=== PATIENT | male | born 1955 | race Caucasian/White ===

== ENCOUNTER 2024-03-11 23:42 | Inpatient (IN) | payer MEDICARE, MEDICAID ==
[~2024-03-11] VITALS: Ht 170.2 cm; Wt 102.1 kg
[2024-03-12] VITALS (20 sets, daily range): BP systolic 117–150; BP diastolic 74–84; PULSE 78–118; RESP 12–21; TEMP 96.8–98.6; O2SAT 90–99
[2024-03-12 00:24] LABS: BASOPHILS % (AUTO) 0.3 % (0-1); EOSINOPHILS % (AUTO) 0.1 % (0-6); HEMATOCRIT 30.4 % (42.0-52.0); HEMOGLOBIN 10.8 g/dl (14.0-17.9); LYMPHOCYTES # (AUTO) 0.4 X10'3 (1.1-4.8); MEAN CORPUSCULAR HEMOGLOBIN 35.9 PG (27.0-31.0); MEAN CORPUSCULAR HGB CONC 35.5 g/dL (33.0-36.5); MEAN CORPUSCULAR VOLUME 101.2 FL (78-98); MEAN PLATELET VOLUME 7.6 FL (7.4-10.4); MONOCYTES # (AUTO) 0.5 X10'3 (0-0.9); NEUTROPHILS # (AUTO) 5.9 X10'3 (1.8-7.7); NEUTROPHILS % (AUTO) 86.6 % (42-75); PLATELET COUNT 147 X10'3 (140-440); RED BLOOD COUNT 3.01 X10'6 (4.70-6.10); RED CELL DISTRIBUTION WIDTH 15.4 % (11.5-14.5); WHITE BLOOD COUNT 6.8 X10'3 (4.5-11.0)
[2024-03-12 01:04] LABS: ALANINE AMINOTRANSFERASE 73 U/L (12-78); ALBUMIN 2.8 G/DL (3.4-5.0); ALBUMIN/GLOBULIN RATIO 0.7 (1.1-1.5); ALKALINE PHOSPHATASE 117 IU/L (46-116); ANION GAP 10 (8-16); ASPARTATE AMINO TRANSFERASE 227 U/L (10-37); BLOOD UREA NITROGEN 10 MG/DL (7-18); CALCIUM 9.2 MG/DL (8.5-10.1); CHLORIDE 84 MMOL/L (99-107); CREATININE 0.83 MG/DL (0.60-1.10); GLUCOSE 95 MG/DL (70-104); POTASSIUM 3.3 MMOL/L (3.5-5.1); PRO BRAIN NATRIURETIC PEPTIDE 4280 PG/ML (0-125); TOTAL PROTEIN 6.8 G/DL (6.4-8.2); eCRCL 82 ML/MIN; eGFR > 90 ML/MIN
[2024-03-12 01:10] LABS: CREATINE KINASE 2922 U/L (39-308)
[2024-03-12 01:20] LABS: MAGNESIUM 1.9 MG/DL (1.5-2.4)
[2024-03-12] MEDS: sodium chloride 1gm tablet PO ONE (01:39)
[2024-03-12] MEDS ORDERED: AMLO-708 PO (01:54)
[2024-03-12] MEDS ORDERED: METO50TA16 PO (01:54)
[2024-03-12] MEDS ORDERED: ALB0.5UD INH (01:54)
[2024-03-12] MEDS ORDERED: POTA-207 PO (01:54)
[2024-03-12] MEDS ORDERED: HYDR-3964 PO (01:54)
[2024-03-12] MEDS ORDERED: FURO40TA4 PO (01:54)
[2024-03-12] MEDS ORDERED: NALO4SPR5 (01:55)
[2024-03-12] MEDS ORDERED: OMEP40CA21 PO (01:55)
[2024-03-12] MEDS ORDERED: NAPR-996 PO (01:55)
[2024-03-12] MEDS ORDERED: LORA-268 PO ×2 (01:55)
[2024-03-12] MEDS ORDERED: HYDR25TA5 PO (01:55)
[2024-03-12] MEDS ORDERED: normal saline 1000ml 1,000 ML IV SCH (02:40)
[2024-03-12] MEDS ORDERED: potassium Cl 40MEQ/1/2NS 520ml 520 ML IV PRN (02:40)
[2024-03-12] MEDS ORDERED: morphine 2 MG/ML inj. syringe IV PRN (02:40)
[2024-03-12] MEDS ORDERED: mag hydrox/Alum hydrox/simeth 30ml oral suspension PO PRN (02:40)
[2024-03-12] MEDS ORDERED: magnesium sulf-water 4G/100mL 100 ML IV PRN (02:40)
[2024-03-12] MEDS ORDERED: ondansetron/PF 4mg/2ml inj IV PRN (02:40)
[2024-03-12] MEDS ORDERED: magnesium sulf-water 2g/50mL 50 ML IV PRN (02:40)
[2024-03-12] MEDS ORDERED: magnesium hydroxide 30ml (MOM) UD suspension PO PRN (02:40)
[2024-03-12] MEDS: PERFLUTREN PROTEIN-A MICROSPHR (Optison) 0.22 MG/ML 3ML VIAL IV ONE (02:52)
[2024-03-12 03:28] LABS: ETHANOL < 10 MG/DL (<10); SODIUM 118 MMOL/L (135-145)
[2024-03-12 03:29] LABS: OSMOLALITY 243 MOSM/K (280-300)
[2024-03-12 03:42] LABS: BILIRUBIN,URINE NEGATIVE (Neg); CLARITY,URINE CLOUDY (Clear); COLOR,URINE YELLOW (Yellow); GLUCOSE, URINE NEGATIVE (Neg); KETONES,URINE TRACE mg/dl (Neg); LEUKOCYTE ESTERASE ,URINE SMALL (Neg); OCCULT BLOOD,URINE MODERATE (Neg); PROTEIN,URINE TRACE mg/dl (Neg); UROBILINOGEN,URINE 0.2 E.U/dL (0.2-1.0)
[2024-03-12 03:43] LABS: NITRITES, URINE NEGATIVE (Neg); UA COLLECTION TYPE FOLEY CATH
[2024-03-12 03:45] LABS: OSMOLALITY UA 380 MOSM/K (50-1400)
[2024-03-12 03:49] LABS: BACTERIA,URINE 1+ /HPF (Neg); RBC,URINE TNTC /HPF (0-2); SQUAMOUS EPITHELIAL CELL,UR FEW /LPF (FEW); WBC,URINE 30-50 /HPF (0-4)
[2024-03-12 03:50] LABS: MUCUS STRANDS NONE SEEN /LPF (Neg); WBC CLUMPS,URINE FEW /HPF (NEGATIVE)
[2024-03-12 04:13] LABS: URINE AMPHETAMINE SCREEN NEGATIVE (Neg); URINE BARBITUATE SCREEN NEGATIVE (Neg); URINE BENZODIAZEPINES SCREEN NEGATIVE (Neg); URINE CANNABINOID SCREEN NEGATIVE (Neg); URINE COCAINE SCREEN NEGATIVE (Neg); URINE METHADONE SCREEN NEGATIVE (Neg); URINE OPIATE SCREEN NEGATIVE (Neg); URINE PHENCYCLIDINE SCREEN NEGATIVE (Neg)
[2024-03-12] MEDS ORDERED: haloperidol lactate 5mg/ml inj IM PRN (04:50)
[2024-03-12] MEDS ORDERED: haloperidol 5mg tablet PO PRN (04:50)
[2024-03-12] MEDS: ipratropium/albuterol 3ml nebule NEB SCH (05:23)
[2024-03-12] MEDS: K and/or MAG REPLACEMENT MC SCH (08:00)
[2024-03-12 08:22] LABS: ANION GAP 10 (8-16); CHLORIDE 85 MMOL/L (99-107); TOTAL CARBON DIOXIDE 24.9 MMOL/L (24-32)
[2024-03-12 08:39] LABS: SODIUM 120 MMOL/L (135-145)
[2024-03-12 09:38] LABS: ALBUMIN 2.7 G/DL (3.4-5.0); ANION GAP 13 (8-16); BLOOD UREA NITROGEN 8 MG/DL (7-18); BUN/CREATININE RATIO 10.1 (10.0-20.0); CALCIUM 9.1 MG/DL (8.5-10.1); CHLORIDE 85 MMOL/L (99-107); CREATININE 0.79 MG/DL (0.60-1.10); GLUCOSE 88 MG/DL (70-104); TOTAL CARBON DIOXIDE 22.3 MMOL/L (24-32); eCRCL 86 ML/MIN; eGFR > 90 ML/MIN
[2024-03-12] MEDS: ipratropium/albuterol 3ml nebule NEB ONE (09:38)
[2024-03-12 09:46] LABS: SODIUM 120 MMOL/L (135-145)
[2024-03-12] MEDS: thiamine 100mg/ml 2ml inj. IV SCH (10:29)
[2024-03-12] MEDS: docusate sod 100mg capsule PO SCH (10:29)
[2024-03-12] MEDS: CefTRIAXone/D5W-Rocephin 1gm 50 ML IV SCH (10:29)
[2024-03-12] MEDS: multivitamins, therapeutics tablet PO SCH (10:32)
[2024-03-12] MEDS: folic acid 1mg/0.2ml inj IV SCH (10:40)
[2024-03-12 10:47] LABS: HEMOGLOBIN A1C 4.9 % (4.5-6.2)
[2024-03-12 11:11] LABS: ANION GAP 7 (8-16); CHLORIDE 87 MMOL/L (99-107); TOTAL CARBON DIOXIDE 26.1 MMOL/L (24-32)
[2024-03-12 11:14] LABS: SODIUM 120 MMOL/L (135-145)
[2024-03-12] MEDS: potassium Cl 20 mEq SR tablet PO PRN (12:01)
[2024-03-12] MEDS ORDERED: NALOXONE NS PRN (14:40)
[2024-03-12 15:48] LABS: ANION GAP 7 (8-16); CHLORIDE 87 MMOL/L (99-107); POTASSIUM 3.3 MMOL/L (3.5-5.1)
[2024-03-12 15:50] LABS: SODIUM 120 MMOL/L (135-145)
[2024-03-12 19:52] LABS: ANION GAP 5 (8-16); CHLORIDE 89 MMOL/L (99-107); TOTAL CARBON DIOXIDE 26.2 MMOL/L (24-32)
[2024-03-12 19:58] LABS: SODIUM 120 MMOL/L (135-145)
[2024-03-12] MEDS: metoprolol tartrate 50mg tablet PO SCH (20:44)
[2024-03-12 22:11] LABS: ALBUMIN 2.8 G/DL (3.4-5.0); BLOOD UREA NITROGEN 9 MG/DL (7-18); BUN/CREATININE RATIO 10.3 (10.0-20.0); CALCIUM 9.3 MG/DL (8.5-10.1); CREATININE 0.87 MG/DL (0.60-1.10); GLUCOSE 108 MG/DL (70-104); eCRCL 78 ML/MIN; eGFR 88 ML/MIN
[2024-03-12 23:33] LABS: ANION GAP 6 (8-16); CHLORIDE 89 MMOL/L (99-107); POTASSIUM 3.8 MMOL/L (3.5-5.1); SODIUM 121 MMOL/L (135-145); TOTAL CARBON DIOXIDE 25.6 MMOL/L (24-32)
[2024-03-13] VITALS (17 sets, daily range): BP systolic 118–126; BP diastolic 70–88; PULSE 53–105; RESP 15–21; TEMP 98–98.7; O2SAT 91–97
[2024-03-13] MEDS: acetaminophen 325mg tablet PO PRN (01:09)
[2024-03-13 07:23] LABS: BASOPHILS % (AUTO) 0.2 % (0-1); EOSINOPHILS % (AUTO) 0.7 % (0-6); HEMATOCRIT 28.6 % (42.0-52.0); HEMOGLOBIN 9.9 g/dl (14.0-17.9); LYMPHOCYTES # (AUTO) 0.5 X10'3 (1.1-4.8); LYMPHOCYTES % (AUTO) 8.1 % (21-51); MEAN CORPUSCULAR HEMOGLOBIN 35.7 PG (27.0-31.0); MEAN CORPUSCULAR HGB CONC 34.6 g/dL (33.0-36.5); MEAN CORPUSCULAR VOLUME 103.2 FL (78-98); MEAN PLATELET VOLUME 7.2 FL (7.4-10.4); MONOCYTES # (AUTO) 0.7 X10'3 (0-0.9); NEUTROPHILS # (AUTO) 5.4 X10'3 (1.8-7.7); PLATELET COUNT 156 X10'3 (140-440); RED BLOOD COUNT 2.77 X10'6 (4.70-6.10); RED CELL DISTRIBUTION WIDTH 15.6 % (11.5-14.5); WHITE BLOOD COUNT 6.6 X10'3 (4.5-11.0)
[2024-03-13 07:32] LABS: INR 1.1 INR; PROTHROMBIN TIME 11.8 SECONDS (9.0-12.0)
[2024-03-13 07:46] LABS: ALANINE AMINOTRANSFERASE 65 U/L (12-78); ALBUMIN 2.6 G/DL (3.4-5.0); ALBUMIN/GLOBULIN RATIO 0.6 (1.1-1.5); ALKALINE PHOSPHATASE 99 IU/L (46-116); AMYLASE 60 U/L (25-115); ANION GAP 7 (8-16); ASPARTATE AMINO TRANSFERASE 153 U/L (10-37); BILIRUBIN,TOTAL 0.8 MG/DL (0.1-1.0); BLOOD UREA NITROGEN 9 MG/DL (7-18); BUN/CREATININE RATIO 10.5 (10.0-20.0); CALCIUM 9.2 MG/DL (8.5-10.1); CHLORIDE 92 MMOL/L (99-107); CREATININE 0.86 MG/DL (0.60-1.10); GLUCOSE 97 MG/DL (70-104); LIPASE 104 U/L (16-77); MAGNESIUM 1.8 MG/DL (1.5-2.4); POTASSIUM 4.1 MMOL/L (3.5-5.1); SODIUM 123 MMOL/L (135-145); TOTAL CARBON DIOXIDE 23.9 MMOL/L (24-32); TOTAL PROTEIN 6.8 G/DL (6.4-8.2); eCRCL 79 ML/MIN; eGFR 89 ML/MIN
[2024-03-13] MEDS: pantoprazole 40mg Tablet.DR PO SCH (08:15)
[2024-03-13] MEDS: amLODIPine 5mg tablet PO SCH (08:15)
[2024-03-13 10:51] LABS: ANION GAP 5 (8-16); CHLORIDE 92 MMOL/L (99-107); SODIUM 122 MMOL/L (135-145); TOTAL CARBON DIOXIDE 24.6 MMOL/L (24-32)
[2024-03-13] MEDS: sodium chloride 1gm tablet PO SCH ×2 (11:02→20:35)
[2024-03-13] MEDS: furosemide 20 MG/2 ML vial IV SCH (13:48)
[2024-03-13 15:39] LABS: ANION GAP 9 (8-16); CHLORIDE 92 MMOL/L (99-107); POTASSIUM 3.7 MMOL/L (3.5-5.1); SODIUM 125 MMOL/L (135-145); TOTAL CARBON DIOXIDE 24.1 MMOL/L (24-32)
[2024-03-13] MEDS: LORazepam 2 mg/ml vial IV PRN (17:50)
[2024-03-13 18:49] LABS: ANION GAP 6 (8-16); CHLORIDE 91 MMOL/L (99-107); POTASSIUM 3.5 MMOL/L (3.5-5.1); SODIUM 125 MMOL/L (135-145); TOTAL CARBON DIOXIDE 27.7 MMOL/L (24-32)
[2024-03-13 23:15] LABS: ANION GAP 6 (8-16); CHLORIDE 93 MMOL/L (99-107); POTASSIUM 3.4 MMOL/L (3.5-5.1); SODIUM 126 MMOL/L (135-145); TOTAL CARBON DIOXIDE 26.8 MMOL/L (24-32)
[2024-03-13] MEDS: potassium Cl 20 mEq SR tablet PO PRN (23:43)
[2024-03-14] VITALS (11 sets, daily range): BP systolic 126–145; BP diastolic 83–100; PULSE 59–115; RESP 16–20; TEMP 97.3–98.3; O2SAT 87–96
[2024-03-14 04:48] LABS: BASOPHILS % (AUTO) 0.3 % (0-1); EOSINOPHILS # (AUTO) 0.1 X10'3 (0-0.9); EOSINOPHILS % (AUTO) 0.8 % (0-6); HEMATOCRIT 29.4 % (42.0-52.0); LYMPHOCYTES # (AUTO) 0.4 X10'3 (1.1-4.8); LYMPHOCYTES % (AUTO) 5.2 % (21-51); MEAN CORPUSCULAR HEMOGLOBIN 35.2 PG (27.0-31.0); MEAN CORPUSCULAR VOLUME 103.4 FL (78-98); MEAN PLATELET VOLUME 6.6 FL (7.4-10.4); MONOCYTES # (AUTO) 0.7 X10'3 (0-0.9); MONOCYTES % (AUTO) 10.1 % (2-12); NEUTROPHILS % (AUTO) 83.6 % (42-75); PLATELET COUNT 169 X10'3 (140-440); RED BLOOD COUNT 2.85 X10'6 (4.70-6.10); RED CELL DISTRIBUTION WIDTH 15.5 % (11.5-14.5); WHITE BLOOD COUNT 7.1 X10'3 (4.5-11.0)
[2024-03-14 04:59] LABS: INR 1.1 INR; PROTHROMBIN TIME 11.8 SECONDS (9.0-12.0)
[2024-03-14 05:03] LABS: ALANINE AMINOTRANSFERASE 61 U/L (12-78); ALBUMIN 2.6 G/DL (3.4-5.0); ALBUMIN/GLOBULIN RATIO 0.6 (1.1-1.5); ALKALINE PHOSPHATASE 95 IU/L (46-116); AMYLASE 66 U/L (25-115); ANION GAP 9 (8-16); BILIRUBIN,TOTAL 0.9 MG/DL (0.1-1.0); BLOOD UREA NITROGEN 11 MG/DL (7-18); BUN/CREATININE RATIO 14.1 (10.0-20.0); CALCIUM 9.2 MG/DL (8.5-10.1); CHLORIDE 94 MMOL/L (99-107); CREATININE 0.78 MG/DL (0.60-1.10); GLUCOSE 91 MG/DL (70-104); LIPASE 103 U/L (16-77); MAGNESIUM 1.4 MG/DL (1.5-2.4); SODIUM 127 MMOL/L (135-145); TOTAL CARBON DIOXIDE 23.9 MMOL/L (24-32); TOTAL PROTEIN 6.9 G/DL (6.4-8.2); eCRCL 87 ML/MIN; eGFR > 90 ML/MIN
[2024-03-14 05:04] LABS: ASPARTATE AMINO TRANSFERASE 134 U/L (10-37); PHOSPHORUS 3.4 MG/DL (2.3-4.5)
[2024-03-14] MEDS: magnesium Cl slow-release 64mg tablet PO PRN (08:21)
[2024-03-14] MEDS: diltiazem SR 60mg capsule (twice daily) PO SCH (08:24)
[2024-03-14] MEDS: Permethrin Cream 60gm TP SCH (14:44)
[2024-03-14] MEDS: LORazepam 2 mg/ml vial IV PRN (18:04)
[2024-03-14] MEDS: lactose-reduced food (Ensure Enlive) - 237ml bottle PO SCH (18:16)
[2024-03-14 20:37] LABS: ALANINE AMINOTRANSFERASE 63 U/L (12-78); ALBUMIN 2.8 G/DL (3.4-5.0); ALBUMIN/GLOBULIN RATIO 0.6 (1.1-1.5); ALKALINE PHOSPHATASE 94 IU/L (46-116); ANION GAP 11 (8-16); ASPARTATE AMINO TRANSFERASE 110 U/L (10-37); BILIRUBIN,TOTAL 1.1 MG/DL (0.1-1.0); BLOOD UREA NITROGEN 14 MG/DL (7-18); BUN/CREATININE RATIO 15.9 (10.0-20.0); CALCIUM 9.5 MG/DL (8.5-10.1); CHLORIDE 95 MMOL/L (99-107); CREATININE 0.88 MG/DL (0.60-1.10); GLUCOSE 100 MG/DL (70-104); POTASSIUM 3.8 MMOL/L (3.5-5.1); SODIUM 131 MMOL/L (135-145); TOTAL CARBON DIOXIDE 24.9 MMOL/L (24-32); TOTAL PROTEIN 7.4 G/DL (6.4-8.2); eCRCL 77 ML/MIN; eGFR 87 ML/MIN
[2024-03-15] VITALS (14 sets, daily range): BP systolic 121–135; BP diastolic 80–92; PULSE 54–111; RESP 19–28; TEMP 98–98.9; O2SAT 91–97
[2024-03-15] MEDS: LORazepam 1 MG tablet PO PRN (01:42)
[2024-03-15 07:10] LABS: BASOPHILS % (AUTO) 0.2 % (0-1); EOSINOPHILS % (AUTO) 0.7 % (0-6); HEMATOCRIT 29.5 % (42.0-52.0); HEMOGLOBIN 10.1 g/dl (14.0-17.9); LYMPHOCYTES # (AUTO) 0.5 X10'3 (1.1-4.8); LYMPHOCYTES % (AUTO) 6.9 % (21-51); MEAN CORPUSCULAR HEMOGLOBIN 35.6 PG (27.0-31.0); MEAN CORPUSCULAR HGB CONC 34.4 g/dL (33.0-36.5); MEAN CORPUSCULAR VOLUME 103.7 FL (78-98); MEAN PLATELET VOLUME 6.9 FL (7.4-10.4); MONOCYTES # (AUTO) 0.8 X10'3 (0-0.9); MONOCYTES % (AUTO) 12.7 % (2-12); NEUTROPHILS # (AUTO) 5.3 X10'3 (1.8-7.7); NEUTROPHILS % (AUTO) 79.5 % (42-75); PLATELET COUNT 169 X10'3 (140-440); RED BLOOD COUNT 2.85 X10'6 (4.70-6.10); RED CELL DISTRIBUTION WIDTH 15.6 % (11.5-14.5); WHITE BLOOD COUNT 6.7 X10'3 (4.5-11.0)
[2024-03-15 07:17] LABS: INR 1.2 INR; PROTHROMBIN TIME 12.8 SECONDS (9.0-12.0)
[2024-03-15 07:21] LABS: ALANINE AMINOTRANSFERASE 57 U/L (12-78); ALBUMIN 2.6 G/DL (3.4-5.0); ALBUMIN/GLOBULIN RATIO 0.6 (1.1-1.5); ALKALINE PHOSPHATASE 85 IU/L (46-116); AMYLASE 53 U/L (25-115); ANION GAP 12 (8-16); ASPARTATE AMINO TRANSFERASE 94 U/L (10-37); BLOOD UREA NITROGEN 17 MG/DL (7-18); BUN/CREATININE RATIO 21.3 (10.0-20.0); CALCIUM 9.5 MG/DL (8.5-10.1); CHLORIDE 98 MMOL/L (99-107); GLUCOSE 83 MG/DL (70-104); LIPASE 54 U/L (16-77); MAGNESIUM 1.5 MG/DL (1.5-2.4); PHOSPHORUS 3.4 MG/DL (2.3-4.5); POTASSIUM 3.3 MMOL/L (3.5-5.1); SODIUM 134 MMOL/L (135-145); TOTAL CARBON DIOXIDE 24.1 MMOL/L (24-32); eCRCL 85 ML/MIN; eGFR > 90 ML/MIN
[2024-03-15 09:38] LABS: C DIFF ANTIGEN NEGATIVE (NEGATIVE); C DIFF SPECIMEN=DIARRHEA? ACCEPTABLE; C DIFFICILE TOXINS A&B NEGATIVE (Neg)
[2024-03-15] MEDS: dextrose 5%-water 1,000 ML IV SCH (15:41)
[2024-03-15] MEDS: dextrose 50%-water 50ml dispensing syringe IV ONE (15:45)
[2024-03-15] MEDS: Permethrin 1% 59ml topical rinse TP ONE (16:30)
[2024-03-15] MEDS ORDERED: glucagon, human recombinant 1mg kit SUBCUT PRN (17:15)
[2024-03-15] MEDS ORDERED: DEXTROSE 15 GM of carb/4 tabs (each vial/BOTTLE has 4 tablets) PO PRN ×2 (17:15)
[2024-03-15] MEDS ORDERED: dextrose 50%-water 50ml dispensing syringe IV PRN ×2 (17:15)
[2024-03-15] MEDS: nicotine 21mg patch - 24 hr TD SCH (18:37)
[2024-03-15] MEDS: potassium Cl 40MEQ/1/2NS 520ml 520 ML IV PRN (20:50)
[2024-03-16] VITALS (15 sets, daily range): BP systolic 118–135; BP diastolic 81–92; PULSE 60–99; RESP 16–21; TEMP 97.9–98.6; O2SAT 94–98
[2024-03-16 06:34] LABS: BASOPHILS % (AUTO) 0.2 % (0-1); EOSINOPHILS # (AUTO) 0.1 X10'3 (0-0.9); EOSINOPHILS % (AUTO) 0.9 % (0-6); HEMATOCRIT 27.7 % (42.0-52.0); HEMOGLOBIN 9.5 g/dl (14.0-17.9); LYMPHOCYTES # (AUTO) 0.4 X10'3 (1.1-4.8); LYMPHOCYTES % (AUTO) 6.1 % (21-51); MEAN CORPUSCULAR HEMOGLOBIN 35.6 PG (27.0-31.0); MEAN CORPUSCULAR HGB CONC 34.3 g/dL (33.0-36.5); MEAN CORPUSCULAR VOLUME 103.5 FL (78-98); MEAN PLATELET VOLUME 6.9 FL (7.4-10.4); MONOCYTES # (AUTO) 0.7 X10'3 (0-0.9); MONOCYTES % (AUTO) 10.6 % (2-12); NEUTROPHILS # (AUTO) 5.5 X10'3 (1.8-7.7); NEUTROPHILS % (AUTO) 82.2 % (42-75); PLATELET COUNT 177 X10'3 (140-440); RED BLOOD COUNT 2.68 X10'6 (4.70-6.10); RED CELL DISTRIBUTION WIDTH 15.7 % (11.5-14.5); WHITE BLOOD COUNT 6.7 X10'3 (4.5-11.0)
[2024-03-16 06:41] LABS: INR 1.2 INR
[2024-03-16 06:57] LABS: AMYLASE 71 U/L (25-115); ANION GAP 10 (8-16); BLOOD UREA NITROGEN 19 MG/DL (7-18); BUN/CREATININE RATIO 27.1 (10.0-20.0); CALCIUM 9.3 MG/DL (8.5-10.1); CHLORIDE 100 MMOL/L (99-107); GLUCOSE 122 MG/DL (70-104); LIPASE 98 U/L (16-77); MAGNESIUM 1.7 MG/DL (1.5-2.4); PHOSPHORUS 2.5 MG/DL (2.3-4.5); POTASSIUM 3.4 MMOL/L (3.5-5.1); SODIUM 136 MMOL/L (135-145); TOTAL CARBON DIOXIDE 25.7 MMOL/L (24-32); eCRCL 97 ML/MIN; eGFR > 90 ML/MIN
[2024-03-16] MEDS: LORazepam 1 MG tablet PO PRN (07:01)
[2024-03-16] MEDS: furosemide 20 MG/2 ML vial IV SCH (07:02)
[2024-03-16 07:03] LABS: ALANINE AMINOTRANSFERASE 48 U/L (12-78); ALBUMIN 2.4 G/DL (3.4-5.0); ALBUMIN/GLOBULIN RATIO 0.5 (1.1-1.5); ALKALINE PHOSPHATASE 89 IU/L (46-116); ASPARTATE AMINO TRANSFERASE 58 U/L (10-37)
[2024-03-16] MEDS ORDERED: magnesium Cl slow-release 64mg tablet PO PRN (13:50)
[2024-03-16] MEDS ORDERED: potassium Cl 20 mEq SR tablet PO PRN (13:50)
[2024-03-16] MEDS: potassium Cl 20 mEq SR tablet PO PRN (13:58)
[2024-03-16] MEDS: thiamine 100mg tablet PO SCH (17:49)
[2024-03-16] MEDS: LORazepam 2 mg/ml vial IV PRN (19:14)
[2024-03-16] MEDS ORDERED: Permethrin Cream 60gm TP SCH (21:00)
[2024-03-17] VITALS (37 sets, daily range): BP systolic 105–126; BP diastolic 64–83; PULSE 62–155; RESP 18–45; O2SAT 74–100
[2024-03-17] MEDS: furosemide 40mg/4ml inj IV STA (03:34)
[2024-03-17 03:41] LABS: ABG BASE EXCESS 0.7 mmol/L (-2.0-3.0); ABG HCO3 25.1 mmol/L (21.0-28.0); ABG OXYGEN SATURATION 70.4 % (94.0-98.0); ABG PCO2 (T) 40.1 mmHg (35.0-48.0); ABG PH (T) 7.416 (7.350-7.450); ABG PO2 (T) 40.2 mmHg (83.0-108.0); ALLEN'S TEST Modified; FCOHb 2.3 % (0.5-1.5); FHHb 28.9 % (0.0-5.0); FMetHb 0.2 % (0.0-1.5); FO2Hb 68.6 % (94.0-98.0); MODE nrb; PATIENT TEMPERATURE 37.3; TOTAL HEMOGLOBIN 10.9 G/dl (13.5-17.5)
[2024-03-17] MEDS: furosemide 40mg/4ml inj ONE (03:46)
[2024-03-17 03:57] LABS: HEMATOCRIT 30.2 % (42.0-52.0); HEMOGLOBIN 10.2 g/dl (14.0-17.9); MEAN CORPUSCULAR HEMOGLOBIN 35.2 PG (27.0-31.0); RED BLOOD COUNT 2.89 X10'6 (4.70-6.10)
[2024-03-17 03:58] LABS: BASOPHILS % (AUTO) 0.7 % (0-1); EOSINOPHILS # (AUTO) 0.1 X10'3 (0-0.9); EOSINOPHILS % (AUTO) 2.3 % (0-6); LYMPHOCYTES # (AUTO) 0.6 X10'3 (1.1-4.8); LYMPHOCYTES % (AUTO) 10.2 % (21-51); MEAN CORPUSCULAR HGB CONC 33.8 g/dL (33.0-36.5); MEAN CORPUSCULAR VOLUME 104.3 FL (78-98); MONOCYTES # (AUTO) 0.7 X10'3 (0-0.9); MONOCYTES % (AUTO) 12.1 % (2-12); NEUTROPHILS # (AUTO) 4.6 X10'3 (1.8-7.7); NEUTROPHILS % (AUTO) 74.7 % (42-75); PLATELET COUNT 191 X10'3 (140-440); RED CELL DISTRIBUTION WIDTH 15.6 % (11.5-14.5); WHITE BLOOD COUNT 6.2 X10'3 (4.5-11.0)
[2024-03-17 04:06] LABS: ALANINE AMINOTRANSFERASE 50 U/L (12-78); ALBUMIN 2.5 G/DL (3.4-5.0); ALBUMIN/GLOBULIN RATIO 0.5 (1.1-1.5); ALKALINE PHOSPHATASE 110 IU/L (46-116); AMYLASE 59 U/L (25-115); ANION GAP 9 (8-16); ASPARTATE AMINO TRANSFERASE 53 U/L (10-37); BLOOD UREA NITROGEN 19 MG/DL (7-18); BUN/CREATININE RATIO 22.4 (10.0-20.0); CALCIUM 9.6 MG/DL (8.5-10.1); CHLORIDE 100 MMOL/L (99-107); CREATININE 0.85 MG/DL (0.60-1.10); GLUCOSE 128 MG/DL (70-104); LIPASE 67 U/L (16-77); MAGNESIUM 1.6 MG/DL (1.5-2.4); PHOSPHORUS 3.1 MG/DL (2.3-4.5); POTASSIUM 4.5 MMOL/L (3.5-5.1); SODIUM 135 MMOL/L (135-145); TOTAL CARBON DIOXIDE 25.6 MMOL/L (24-32); TOTAL PROTEIN 7.5 G/DL (6.4-8.2); eCRCL 80 ML/MIN; eGFR 90 ML/MIN
[2024-03-17 04:25] LABS: ABG BASE EXCESS 2.6 mmol/L (-2.0-3.0); ABG HCO3 26.4 mmol/L (21.0-28.0); ABG OXYGEN SATURATION 81.9 % (94.0-98.0); ABG PH (T) 7.461 (7.350-7.450); ABG PO2 (T) 47.4 mmHg (83.0-108.0); ALLEN'S TEST Modified; FCOHb 2.2 % (0.5-1.5); FHHb 17.7 % (0.0-5.0); FMetHb 0.2 % (0.0-1.5); FO2Hb 79.9 % (94.0-98.0); PATIENT TEMPERATURE 37.4; TOTAL HEMOGLOBIN 10.7 G/dl (13.5-17.5)
[2024-03-17 04:28] LABS: INR 1.2 INR; PROTHROMBIN TIME 12.1 SECONDS (9.0-12.0)
[2024-03-17] MEDS: ringers solution, lacted 1,000 ML IV SCH (07:04)
[2024-03-17] MEDS: metroNIDAZOLE-Flagyl 500mg/NS 100 ML IV SCH (07:18)
[2024-03-17] MEDS: dexmedetomidin/NS 400mcg/100ml 100 ML IV SCH (07:46)
[2024-03-17] MEDS: pantoprazole 40MG/NS 100ML BAG 100 ML IV SCH (08:18)
[2024-03-17] MEDS: NORMAL SALINE IV ONE (08:44)
[2024-03-17] MEDS: TOBRAMYCIN IV ONE (08:44)
[2024-03-17] MEDS: acetaminophen 1,000mg/100ml IV 100 ML IV PRN (09:01)
[2024-03-17 10:52] LABS: SODIUM 117 MMOL/L (135-145)
[2024-03-17 19:19] LABS: BASOPHILS % (AUTO) 0.3 % (0-1); EOSINOPHILS % (AUTO) 0.2 % (0-6); HEMATOCRIT 28.2 % (42.0-52.0); HEMOGLOBIN 9.7 g/dl (14.0-17.9); LYMPHOCYTES # (AUTO) 0.4 X10'3 (1.1-4.8); LYMPHOCYTES % (AUTO) 3.2 % (21-51); MEAN CORPUSCULAR HEMOGLOBIN 35.3 PG (27.0-31.0); MEAN CORPUSCULAR HGB CONC 34.2 g/dL (33.0-36.5); MEAN CORPUSCULAR VOLUME 103.1 FL (78-98); MEAN PLATELET VOLUME 7.1 FL (7.4-10.4); MONOCYTES # (AUTO) 0.5 X10'3 (0-0.9); MONOCYTES % (AUTO) 4.3 % (2-12); NEUTROPHILS # (AUTO) 11.1 X10'3 (1.8-7.7); PLATELET COUNT 157 X10'3 (140-440); RED BLOOD COUNT 2.74 X10'6 (4.70-6.10); RED CELL DISTRIBUTION WIDTH 15.2 % (11.5-14.5)
[2024-03-17 19:19] LABS: ABG HCO3 23.8 mmol/L (21.0-28.0); ABG OXYGEN SATURATION 99.6 % (94.0-98.0); ABG PH (T) 7.501 (7.350-7.450); ABG PO2 (T) 142.5 mmHg (83.0-108.0); ALLEN'S TEST Modified; FCOHb 1.5 % (0.5-1.5); FHHb 0.4 % (0.0-5.0); FMetHb 0.2 % (0.0-1.5); FO2Hb 97.9 % (94.0-98.0); MODE MASK - BIPAP; PATIENT TEMPERATURE 36.8; RESPIRATORY RATE 12 b/min
[2024-03-17 19:36] LABS: ALANINE AMINOTRANSFERASE 36 U/L (12-78); ALBUMIN/GLOBULIN RATIO 0.5 (1.1-1.5); ALKALINE PHOSPHATASE 99 IU/L (46-116); ANION GAP 8 (8-16); ASPARTATE AMINO TRANSFERASE 29 U/L (10-37); BILIRUBIN,TOTAL 1.1 MG/DL (0.1-1.0); BLOOD UREA NITROGEN 17 MG/DL (7-18); BUN/CREATININE RATIO 24.3 (10.0-20.0); CALCIUM 9.1 MG/DL (8.5-10.1); CHLORIDE 103 MMOL/L (99-107); GLUCOSE 119 MG/DL (70-104); MAGNESIUM 1.4 MG/DL (1.5-2.4); PHOSPHORUS 3.8 MG/DL (2.3-4.5); PRO BRAIN NATRIURETIC PEPTIDE 4545 PG/ML (0-125); SODIUM 137 MMOL/L (135-145); TOTAL CARBON DIOXIDE 25.7 MMOL/L (24-32); TOTAL PROTEIN 6.4 G/DL (6.4-8.2); eCRCL 97 ML/MIN; eGFR > 90 ML/MIN
[2024-03-17] MEDS: magnesium sulf-water 4G/100mL 100 ML IV PRN (19:52)
[2024-03-17] MEDS: enoxaparin 40mg/0.4ml syringe SUBCUT SCH (19:53)
[2024-03-17] MEDS: COMMUNICATION ORDER 1 EA MISC MC ONE (22:45)
[2024-03-18] VITALS (28 sets, daily range): BP systolic 106–124; BP diastolic 66–82; PULSE 72–142; RESP 16–30; O2SAT 2–98
[2024-03-18] MEDS: magnesium sulf-water 2g/50mL 50 ML IV PRN (01:45)
[2024-03-18 02:14] LABS: BASOPHILS % (AUTO) 0.3 % (0-1); EOSINOPHILS % (AUTO) 0.4 % (0-6); HEMATOCRIT 27.6 % (42.0-52.0); HEMOGLOBIN 9.4 g/dl (14.0-17.9); LYMPHOCYTES # (AUTO) 0.5 X10'3 (1.1-4.8); LYMPHOCYTES % (AUTO) 4.8 % (21-51); MEAN CORPUSCULAR HEMOGLOBIN 35.1 PG (27.0-31.0); MEAN CORPUSCULAR VOLUME 103.1 FL (78-98); MEAN PLATELET VOLUME 7.6 FL (7.4-10.4); MONOCYTES # (AUTO) 0.4 X10'3 (0-0.9); NEUTROPHILS % (AUTO) 90.5 % (42-75); PLATELET COUNT 157 X10'3 (140-440); RED BLOOD COUNT 2.67 X10'6 (4.70-6.10); RED CELL DISTRIBUTION WIDTH 15.5 % (11.5-14.5); WHITE BLOOD COUNT 9.9 X10'3 (4.5-11.0)
[2024-03-18 02:30] LABS: ALANINE AMINOTRANSFERASE 35 U/L (12-78); ALBUMIN 1.9 G/DL (3.4-5.0); ALBUMIN/GLOBULIN RATIO 0.4 (1.1-1.5); ALKALINE PHOSPHATASE 95 IU/L (46-116); ANION GAP 8 (8-16); ASPARTATE AMINO TRANSFERASE 29 U/L (10-37); BILIRUBIN,TOTAL 1.1 MG/DL (0.1-1.0); BLOOD UREA NITROGEN 18 MG/DL (7-18); BUN/CREATININE RATIO 27.3 (10.0-20.0); CHLORIDE 104 MMOL/L (99-107); CREATININE 0.66 MG/DL (0.60-1.10); GLUCOSE 102 MG/DL (70-104); MAGNESIUM 2.5 MG/DL (1.5-2.4); PHOSPHORUS 3.6 MG/DL (2.3-4.5); POTASSIUM 3.9 MMOL/L (3.5-5.1); SODIUM 139 MMOL/L (135-145); TOTAL PROTEIN 6.2 G/DL (6.4-8.2); eCRCL 103 ML/MIN; eGFR > 90 ML/MIN
[2024-03-18] MEDS: digoxin 250mcg/ml 2ml ampule IV ONE ×3 (11:37→23:59)
[2024-03-18] MEDS: metoprolol tartrate 1mg/ml inj IV PRN (16:00)
[2024-03-18] MEDS ORDERED: LORazepam 1 MG tablet PO PRN (17:40)
[2024-03-18] MEDS: doxycycline inj 100 MG in normal saline 100ml IV soln 100 ML IV SCH (20:19)
[2024-03-19] VITALS (21 sets, daily range): BP systolic 116–149; BP diastolic 72–95; PULSE 88–135; RESP 16–28; TEMP 97.2–98; O2SAT 94–97
[2024-03-19 00:35] LABS: BASOPHILS % (AUTO) 0.2 % (0-1); EOSINOPHILS % (AUTO) 0.6 % (0-6); HEMATOCRIT 28.5 % (42.0-52.0); HEMOGLOBIN 9.7 g/dl (14.0-17.9); LYMPHOCYTES # (AUTO) 0.5 X10'3 (1.1-4.8); LYMPHOCYTES % (AUTO) 7.4 % (21-51); MEAN CORPUSCULAR VOLUME 103.2 FL (78-98); MEAN PLATELET VOLUME 7.4 FL (7.4-10.4); MONOCYTES # (AUTO) 0.5 X10'3 (0-0.9); MONOCYTES % (AUTO) 7.6 % (2-12); NEUTROPHILS # (AUTO) 6.1 X10'3 (1.8-7.7); NEUTROPHILS % (AUTO) 84.2 % (42-75); PLATELET COUNT 170 X10'3 (140-440); RED BLOOD COUNT 2.76 X10'6 (4.70-6.10); RED CELL DISTRIBUTION WIDTH 15.9 % (11.5-14.5); WHITE BLOOD COUNT 7.2 X10'3 (4.5-11.0)
[2024-03-19 00:49] LABS: ALANINE AMINOTRANSFERASE 30 U/L (12-78); ALBUMIN 1.9 G/DL (3.4-5.0); ALBUMIN/GLOBULIN RATIO 0.4 (1.1-1.5); ALKALINE PHOSPHATASE 91 IU/L (46-116); ANION GAP 8 (8-16); ASPARTATE AMINO TRANSFERASE 27 U/L (10-37); BILIRUBIN,TOTAL 0.7 MG/DL (0.1-1.0); BLOOD UREA NITROGEN 16 MG/DL (7-18); BUN/CREATININE RATIO 24.2 (10.0-20.0); CHLORIDE 106 MMOL/L (99-107); CREATININE 0.66 MG/DL (0.60-1.10); GLUCOSE 90 MG/DL (70-104); MAGNESIUM 1.9 MG/DL (1.5-2.4); PHOSPHORUS 3.4 MG/DL (2.3-4.5); POTASSIUM 3.6 MMOL/L (3.5-5.1); SODIUM 140 MMOL/L (135-145); TOTAL CARBON DIOXIDE 26.5 MMOL/L (24-32); TOTAL PROTEIN 6.2 G/DL (6.4-8.2); eCRCL 103 ML/MIN; eGFR > 90 ML/MIN
[2024-03-19] MEDS ORDERED: metoprolol tartrate 50mg tablet PO SCH (08:35)
[2024-03-19] MEDS: digoxin 125mcg (0.125mg) tablet PO SCH (09:37)
[2024-03-19] MEDS: LORazepam 2 mg/ml vial IV PRN (13:02)
[2024-03-20] VITALS (15 sets, daily range): BP systolic 123–133; BP diastolic 81–93; PULSE 95–120; RESP 16–31; TEMP 97.5–98.1; O2SAT 94–97
[2024-03-20 06:24] LABS: BASOPHILS % (AUTO) 0.9 % (0-1); EOSINOPHILS # (AUTO) 0.1 X10'3 (0-0.9); HEMATOCRIT 29.2 % (42.0-52.0); HEMOGLOBIN 9.8 g/dl (14.0-17.9); LYMPHOCYTES # (AUTO) 0.4 X10'3 (1.1-4.8); LYMPHOCYTES % (AUTO) 7.6 % (21-51); MEAN CORPUSCULAR HEMOGLOBIN 35.3 PG (27.0-31.0); MEAN CORPUSCULAR HGB CONC 33.7 g/dL (33.0-36.5); MEAN CORPUSCULAR VOLUME 104.5 FL (78-98); MEAN PLATELET VOLUME 7.2 FL (7.4-10.4); MONOCYTES # (AUTO) 0.5 X10'3 (0-0.9); MONOCYTES % (AUTO) 9.5 % (2-12); NEUTROPHILS # (AUTO) 4.2 X10'3 (1.8-7.7); PLATELET COUNT 206 X10'3 (140-440); RED BLOOD COUNT 2.79 X10'6 (4.70-6.10); RED CELL DISTRIBUTION WIDTH 15.7 % (11.5-14.5); WHITE BLOOD COUNT 5.2 X10'3 (4.5-11.0)
[2024-03-20 06:41] LABS: ALANINE AMINOTRANSFERASE 27 U/L (12-78); ALBUMIN 2.1 G/DL (3.4-5.0); ALBUMIN/GLOBULIN RATIO 0.5 (1.1-1.5); ALKALINE PHOSPHATASE 85 IU/L (46-116); ANION GAP 9 (8-16); ASPARTATE AMINO TRANSFERASE 32 U/L (10-37); BILIRUBIN,TOTAL 0.7 MG/DL (0.1-1.0); BLOOD UREA NITROGEN 15 MG/DL (7-18); BUN/CREATININE RATIO 21.4 (10.0-20.0); CALCIUM 9.3 MG/DL (8.5-10.1); CHLORIDE 111 MMOL/L (99-107); GLUCOSE 107 MG/DL (70-104); MAGNESIUM 1.7 MG/DL (1.5-2.4); PHOSPHORUS 2.9 MG/DL (2.3-4.5); POTASSIUM 3.5 MMOL/L (3.5-5.1); SODIUM 145 MMOL/L (135-145); TOTAL CARBON DIOXIDE 25.1 MMOL/L (24-32); TOTAL PROTEIN 6.6 G/DL (6.4-8.2); eCRCL 97 ML/MIN; eGFR > 90 ML/MIN
[2024-03-20] MEDS: DOXYCYCLINE 100MG CAPSULE PO SCH (16:53)
[2024-03-20] MEDS: metoprolol tartrate 50mg tablet PO SCH (20:03)
[2024-03-21] VITALS (20 sets, daily range): BP systolic 101–136; BP diastolic 79–96; PULSE 91–128; RESP 18–38; TEMP 97.3–100.7; O2SAT 93–98
[2024-03-21 07:26] LABS: BASOPHILS % (AUTO) 1.2 % (0-1); EOSINOPHILS # (AUTO) 0.2 X10'3 (0-0.9); HEMATOCRIT 28.8 % (42.0-52.0); HEMOGLOBIN 9.5 g/dl (14.0-17.9); LYMPHOCYTES # (AUTO) 0.5 X10'3 (1.1-4.8); LYMPHOCYTES % (AUTO) 13.6 % (21-51); MEAN CORPUSCULAR HEMOGLOBIN 34.3 PG (27.0-31.0); MEAN CORPUSCULAR VOLUME 104.1 FL (78-98); MEAN PLATELET VOLUME 7.6 FL (7.4-10.4); MONOCYTES # (AUTO) 0.5 X10'3 (0-0.9); MONOCYTES % (AUTO) 12.6 % (2-12); NEUTROPHILS # (AUTO) 2.6 X10'3 (1.8-7.7); NEUTROPHILS % (AUTO) 67.6 % (42-75); PLATELET COUNT 225 X10'3 (140-440); RED BLOOD COUNT 2.77 X10'6 (4.70-6.10); RED CELL DISTRIBUTION WIDTH 16.1 % (11.5-14.5); WHITE BLOOD COUNT 3.9 X10'3 (4.5-11.0)
[2024-03-21 07:32] LABS: ALANINE AMINOTRANSFERASE 24 U/L (12-78); ALBUMIN/GLOBULIN RATIO 0.5 (1.1-1.5); ALKALINE PHOSPHATASE 76 IU/L (46-116); ANION GAP 7 (8-16); ASPARTATE AMINO TRANSFERASE 30 U/L (10-37); BILIRUBIN,TOTAL 0.7 MG/DL (0.1-1.0); BLOOD UREA NITROGEN 15 MG/DL (7-18); BUN/CREATININE RATIO 22.1 (10.0-20.0); CALCIUM 9.2 MG/DL (8.5-10.1); CHLORIDE 115 MMOL/L (99-107); CREATININE 0.68 MG/DL (0.60-1.10); GLUCOSE 89 MG/DL (70-104); PHOSPHORUS 3.7 MG/DL (2.3-4.5); POTASSIUM 3.5 MMOL/L (3.5-5.1); SODIUM 148 MMOL/L (135-145); TOTAL CARBON DIOXIDE 26.4 MMOL/L (24-32); TOTAL PROTEIN 6.4 G/DL (6.4-8.2); eCRCL 100 ML/MIN; eGFR > 90 ML/MIN
[2024-03-21] MEDS ORDERED: thiamine 100mg/ml 2ml inj. IV SCH (08:00)
[2024-03-21] MEDS ORDERED: folic acid 1mg tablet PO SCH (08:00)
[2024-03-21] MEDS: pantoprazole 40mg Tablet.DR PO SCH (08:30)
[2024-03-21] MEDS: folic acid 1mg tablet PO SCH (08:30)
[2024-03-21] MEDS: cyanocobalamin 500mcg tablet PO SCH (08:31)
[2024-03-21] MEDS: thiamine 100mg/ml 2ml inj. IV SCH (08:34)
[2024-03-21] MEDS: LORazepam 2 mg/ml vial IV PRN (17:04)
[2024-03-22] VITALS (10 sets, daily range): BP systolic 119–123; BP diastolic 82–85; PULSE 93–110; RESP 16–30; TEMP 97.6–98.5; O2SAT 94–95
[2024-03-22 05:03] LABS: BASOPHILS # (AUTO) 0.1 X10'3 (0-0.2); BASOPHILS % (AUTO) 1.2 % (0-1); EOSINOPHILS # (AUTO) 0.2 X10'3 (0-0.9); EOSINOPHILS % (AUTO) 4.2 % (0-6); HEMATOCRIT 28.1 % (42.0-52.0); HEMOGLOBIN 9.3 g/dl (14.0-17.9); LYMPHOCYTES # (AUTO) 0.8 X10'3 (1.1-4.8); LYMPHOCYTES % (AUTO) 16.6 % (21-51); MEAN CORPUSCULAR HEMOGLOBIN 34.2 PG (27.0-31.0); MEAN CORPUSCULAR VOLUME 103.7 FL (78-98); MEAN PLATELET VOLUME 7.6 FL (7.4-10.4); MONOCYTES # (AUTO) 0.7 X10'3 (0-0.9); NEUTROPHILS # (AUTO) 2.9 X10'3 (1.8-7.7); PLATELET COUNT 229 X10'3 (140-440); RED BLOOD COUNT 2.71 X10'6 (4.70-6.10); RED CELL DISTRIBUTION WIDTH 16.1 % (11.5-14.5); WHITE BLOOD COUNT 4.5 X10'3 (4.5-11.0)
[2024-03-22 05:20] LABS: ALANINE AMINOTRANSFERASE 24 U/L (12-78); ALBUMIN/GLOBULIN RATIO 0.4 (1.1-1.5); ALKALINE PHOSPHATASE 74 IU/L (46-116); ANION GAP 7 (8-16); ASPARTATE AMINO TRANSFERASE 27 U/L (10-37); BILIRUBIN,TOTAL 0.7 MG/DL (0.1-1.0); BLOOD UREA NITROGEN 20 MG/DL (7-18); CALCIUM 9.1 MG/DL (8.5-10.1); CHLORIDE 112 MMOL/L (99-107); CREATININE 0.77 MG/DL (0.60-1.10); GLUCOSE 109 MG/DL (70-104); MAGNESIUM 1.7 MG/DL (1.5-2.4); PHOSPHORUS 2.9 MG/DL (2.3-4.5); POTASSIUM 3.5 MMOL/L (3.5-5.1); SODIUM 145 MMOL/L (135-145); TOTAL CARBON DIOXIDE 25.9 MMOL/L (24-32); TOTAL PROTEIN 6.5 G/DL (6.4-8.2); eCRCL 88 ML/MIN; eGFR > 90 ML/MIN
[2024-03-22] MEDS ORDERED: chlordiazePOXIDE 5mg capsule PO PRN (08:35)
[2024-03-22] MEDS: magnesium oxide 400mg tablet PO ONE (13:39)
[2024-03-22] MEDS ORDERED: Melatonin 3mg tablet PO SCH (21:00)
== END 2024-03-22 14:24 | DRG 564 ==
LOC: ER 23:43 → ED HOLD 03-12 02:44 → ORTHO 4S 03-12 05:45 → CICU 2S 03-17 03:50 → PCU 3S 03-19 11:53
PROVIDERS: ADMIT Student in an Organized Health Care Education/Training Program; ATTEND Family Medicine
PROC: 5A09457 Assistance with Respiratory Ventilation, 24-96 Consecutive Hours, Continuous Positive Airway Pressure (ICD-10-PCS; principal; 2024-03-17)
PROC: 5A0935A Assistance with Respiratory Ventilation, Less than 24 Consecutive Hours, High Flow/Velocity Cannula (ICD-10-PCS; 2024-03-18)
DX: T79.6XXA Traumatic ischemia of muscle, initial encounter (principal); G93.41 Metabolic encephalopathy; I50.33 Acute on chronic diastolic (congestive) heart failure; J69.0 Pneumonitis due to inhalation of food and vomit; J96.01 Acute respiratory failure with hypoxia; N39.0 Urinary tract infection, site not specified; E87.1 Hypo-osmolality and hyponatremia; I48.20 Chronic atrial fibrillation, unspecified; F10.239 Alcohol dependence with withdrawal, unspecified; I11.0 Hypertensive heart disease with heart failure; E87.6 Hypokalemia; E83.42 Hypomagnesemia; F10.20 Alcohol dependence, uncomplicated; I48.91 Unspecified atrial fibrillation; R74.01 Elevation of levels of liver transaminase levels; E87.8 Other disorders of electrolyte and fluid balance, not elsewhere classified; D50.9 Iron deficiency anemia, unspecified; E16.2 Hypoglycemia, unspecified; Z60.2 Problems related to living alone; F10.229 Alcohol dependence with intoxication, unspecified; L98.8 Other specified disorders of the skin and subcutaneous tissue; N40.0 Benign prostatic hyperplasia without lower urinary tract symptoms; W18.39XA Other fall on same level, initial encounter; Z88.5 Allergy status to narcotic agent; Y93.89 Activity, other specified; Y92.89 Other specified places as the place of occurrence of the external cause; Y99.8 Other external cause status; R56.9 Unspecified convulsions
CPT/HCPCS: 36415; 36600; 71045; 76700; 80048; 80051; 80053; 80305; 80320; 81001; 82140; 82150; 82550; 82803; 82948; 83036; 83605; 83690; 83735; 83880; 83930; 83935; 84100; 84145; 84295; 84300; 84484; 85018; 85025; 85610; 87040; 87077; 87081; 87088; 87186; 87324; 87449; 92508; 92616; 93005; 93306; 94640; 94660; 94760; 97110; 97530; 97535; 99291; A4615; A4620; A5200; A6212; A6213; A6258; A6446; A6449; A6590; C1758; G0378; J0131; J0696; J1160; J1650; J1940; J2060; J2470; J3260; J3411; J3475; J3480; J3490; J7040; J7070; J7120